=== PATIENT | female | born 1985 | race African-American/Black ===

== ENCOUNTER 2016-11-18 07:47 | Emergency (ER) | payer OTHER ==
[~2016-11-18 07:47] MED LIST: METR500T PO; METR500T4 PO
[2016-11-18 08:31] LABS: BILIRUBIN,URINE NEGATIVE (NEG); GLUCOSE,URINE NEGATIVE (NEG); NITRITE,URINE NEGATIVE (NEG); PH,URINE 6.5; PROTEIN,URINE NEGATIVE (NEG-TRACE); UROBILINOGEN,URINE 0.2 mg/dL (0.2 mg/dL)
[2016-11-18 08:36] LABS: BACTERIA,URINE 0 /HPF (0-FEW); RBC,URINE OCC /HPF (0-2); SQUAMOUS EPITHELIAL CELL,UR MOD /LPF; WBC,URINE OCC /HPF (0-4)
--- NOTE | 2016-11-18 08:59 | PHYS DOC ---
Past Medical History Past Medical History: Other Additional Past Medical Histor: Spontaneous Pneumothorax-no surgery, frequent BV Past Surgical History: Tubal ligation, Other Additional Past Surgical Histo: LEEP,Cyrotherapy Alcohol Use: None Drug Use: None Adult General Chief Complaint Chief Complaint: VAGINAL PROBLEM HPI HPI Patient is a 31 year old female who presents with foul-smelling vaginal discharge for the last couple days. Patient denies any concern for STDs. Denies any urgency frequency dysuria. She states she has history of BV and this feels similar. Denies any abdominal pain nausea or vomiting. Review of Systems Review of Systems Constitutional: Denies fever or chills [] Eyes: Denies change in visual acuity, redness, or eye pain [] HENT: Denies nasal congestion or sore throat [] Respiratory: Denies cough or shortness of breath [] Cardiovascular: No additional information not addressed in HPI [] GI: Denies abdominal pain, nausea, vomiting, bloody stools or diarrhea [] : Vaginal discharge Musculoskeletal: Denies back pain or joint pain [] Integument: Denies rash or skin lesions [] Neurologic: Denies headache, focal weakness or sensory changes [] Endocrine: Denies polyuria or polydipsia [] Allergies Allergies Allergies Coded Allergies Type Severity Reaction Last Updated Verified No Known Drug Allergies 01/02/15 No Physical Exam Physical Exam Constitutional: Well developed, well nourished, no acute distress, non-toxic appearance. [] HENT: Normocephalic, atraumatic, bilateral external ears normal, oropharynx moist, no oral exudates, nose normal. [] Eyes: PERRLA, EOMI, conjunctiva normal, no discharge. [] Neck: Normal range of motion, no tenderness, supple, no stridor. [] Cardiovascular:Heart rate regular rhythm, no murmur [] Lungs & Thorax: Bilateral breath sounds clear to auscultation [] Abdomen: Bowel sounds normal, soft, no tenderness, no masses, no pulsatile masses. [] Vaginal exam External vaginal area appears normal. Cervix is closed no CMT. Trace amount of white discharge noted in the cervical os. No adnexal tenderness. Skin: Warm, dry, no erythema, no rash. [] Back: No tenderness, no CVA tenderness. [] Extremities: No tenderness, no cyanosis, no clubbing, ROM intact, no edema. [] Neurologic: Alert and oriented X 3, normal motor function, normal sensory function, no focal deficits noted. [] Psychologic: Affect normal, judgement normal, mood normal. [] Current Patient Data Vital Signs Vital Signs Date Time Temp Pulse Resp B/P Pulse Ox O2 Delivery O2 Flow Rate FiO2 11/18/16 09:08 98.9 63 18 99 Room Air 98.9 Lab Values Laboratory Tests Test 11/18/16 07:25 11/18/16 08:20 POC Urine HCG, Qualitative Hcg negative (Negative) Urine Collection Type Unknown Urine Color Yellow Urine Clarity Clear Urine pH 6.5 Urine Specific [place] 1.010 Urine Protein Negativemg/dL (NEG-TRACE) Urine Glucose (UA) Negativemg/dL (NEG) Urine Ketones (Stick) Negativemg/dL (NEG) Urine Blood Negative (NEG) Urine Nitrite Negative (NEG) Urine Bilirubin Negative (NEG) Urine Urobilinogen Dipstick 0.2mg/dL (0.2 mg/dL) Urine Leukocyte Esterase Negative (NEG) Urine RBC Occ/HPF (0-2) Urine WBC Occ/HPF (0-4) Urine Squamous Epithelial Cells Mod/LPF Urine Bacteria 0/HPF (0-FEW) Microbiology 11/18/16 Wet Prep - Final, Complete EKG EKG [] Radiology/Procedures Radiology/Procedures [] Course & Med Decision Making Course & Med Decision Making Pertinent Labs and Imaging studies reviewed. (See chart for details) Patient is in the ED with vaginal discharge for couple days. She has history of bacterial vaginosis. Her last treatment for BV she states was around August. Negative urine hCG, urine analysis is negative for infection. Wet prep positive for BV. Patient was discharged with Flagyl. She states she has a new OB she is going to follow-up with. Holly Disclaimer Holly Disclaimer This electronic medical record was generated, in whole or in part, using a voice recognition dictation system. Departure Departure Impression: Primary Impression: Bacterial vaginosis Disposition: 01 HOME, SELF-CARE Condition: STABLE Referrals: DENISE BLACK (PCP) Follow-up with the HOTEL OPERATION MANAGER as soon as possible Patient Instructions: Bacterial Vaginosis, [id number] Additional Instructions: You were seen for bacterial vaginosis. Take the prescribed medicines until completed. Follow-up with your own doctor in one week. Come back to the ED at any point symptoms worsen or you have other concerns. Scripts Metronidazole (Flagyl)500 Mg Tablet1 Tab PO BID #14 TAB Prov:NANCI LEÓN APRN 11/18/16 NANCI LEÓN APRN Nov 18, 2016 08:59
[2016-11-18 09:08] VITALS: BP 132/69
[2016-11-18] MEDS ORDERED: METR500T PO (09:44)
== END 2016-11-18 10:07 | disposition home or self-care (01) ==
LOC: ER 07:47
DX: N76.0 Acute vaginitis (principal); B96.89 Other specified bacterial agents as the cause of diseases classified elsewhere; Z98.51 Tubal ligation status; Z98.890 Other specified postprocedural states
CPT/HCPCS: 81001; 81025; 99284; Q0111

== ENCOUNTER 2017-09-16 19:47 | Emergency (ER) | payer OTHER ==
[2017-09-16 20:59] LABS: BILIRUBIN,URINE NEGATIVE (NEG); CLARITY,URINE CLEAR; COLOR,URINE YELLOW; GLUCOSE,URINE NEGATIVE (NEG); NITRITE,URINE NEGATIVE (NEG); PROTEIN,URINE NEGATIVE (NEG-TRACE); UROBILINOGEN,URINE 0.2 mg/dL (0.2 mg/dL)
[2017-09-16 21:03] LABS: NEG OBC UR NEG; POS OBC UR POS; U PREG PATIENT NEGATIVE (NEG)
[2017-09-16 21:05] LABS: BACTERIA,URINE MANY /HPF (0-FEW); RBC,URINE 0 /HPF (0-2); SQUAMOUS EPITHELIAL CELL,UR MANY /LPF
[2017-09-16] MEDS ORDERED: AZITHROMYCIN 250 MG TABLET. (22:33)
[2017-09-16] MEDS ORDERED: metroNIDAZOLE 500 MG TABLET (22:33)
[2017-09-16] MEDS ORDERED: cefTRIAXone IM 250 MG VIAL IM (22:33)
[2017-09-16] MEDS: cefTRIAXone IM 250 MG VIAL IM (22:40)
[2017-09-16] MEDS: AZITHROMYCIN 250 MG TABLET. PO (22:40)
[2017-09-16] MEDS: metroNIDAZOLE 500 MG TABLET PO (22:40)
[2017-09-18 19:16] LABS: CHLAMYDIA PROBE Negative (Negative); GC PROBE Negative (Negative)
== END 2017-09-16 22:48 | disposition home or self-care (01) ==
LOC: ER 19:47
DX: N76.0 Acute vaginitis (principal); B96.89 Other specified bacterial agents as the cause of diseases classified elsewhere; Z98.51 Tubal ligation status
CPT/HCPCS: 81001; 81025; 87086; 87491; 87591; 96372; 99284-25; J0696; Q0111; Q0144

== ENCOUNTER 2017-12-21 19:32 | Emergency (ER) | payer OTHER ==
[2017-12-21 19:59] LABS: URINE HCG POC HCG NEGATIVE (Negative)
[2017-12-21 20:02] LABS: BILIRUBIN,URINE NEGATIVE (NEG); CLARITY,URINE CLOUDY; COLOR,URINE YELLOW; GLUCOSE,URINE NEGATIVE (NEG); NITRITE,URINE NEGATIVE (NEG); PROTEIN,URINE NEGATIVE (NEG-TRACE); UROBILINOGEN,URINE 0.2 mg/dL (0.2 mg/dL)
[2017-12-21 20:10] LABS: BACTERIA,URINE 0 /HPF (0-FEW); RBC,URINE 0 /HPF (0-2); SQUAMOUS EPITHELIAL CELL,UR MOD /LPF
[2017-12-25 14:23] LABS: CHLAMYDIA PROBE Negative (Negative); GC PROBE Negative (Negative)
== END 2017-12-21 20:20 | disposition home or self-care (01) ==
LOC: ER 19:32
DX: N76.0 Acute vaginitis (principal); B96.89 Other specified bacterial agents as the cause of diseases classified elsewhere; Z11.3 Encounter for screening for infections with a predominantly sexual mode of transmission; Z98.51 Tubal ligation status
CPT/HCPCS: 81001; 81025; 87491; 87591; 99284

== ENCOUNTER 2018-10-27 12:31 | Emergency (ER) | payer OTHER ==
[~2018-10-27] VITALS: Ht 167.6 cm; Wt 77.1 kg
[~2018-10-27 12:31] MED LIST changes: +METR-34 PO; -METR500T4 PO
[2018-10-27 13:02] LABS: BILIRUBIN,URINE NEGATIVE (NEG); CLARITY,URINE CLEAR; COLOR,URINE YELLOW; NITRITE,URINE NEGATIVE (NEG); PROTEIN,URINE NEGATIVE (NEG-TRACE)
--- NOTE | 2018-10-27 13:06 | PHYS DOC ---
Past Medical History Past Medical History: No Pertinent History Additional Past Medical Histor: Spontaneous Pneumothorax-no surgery, frequent BV (ROB CANTRELL APRN) Past Surgical History: Tubal ligation Additional Past Surgical Histo: hemorriodectomy (ROB CANTRELL APRN) Alcohol Use: None Drug Use: None (ROB CANTRELL APRN) Adult General Chief Complaint Chief Complaint: VAGINAL PROBLEM HPI HPI Patient is a 33 year old female who presents with vaginal discharge that is odorous 4 days. (ROB CANTRELL APRN) Review of Systems Review of Systems Constitutional: Denies fever or chills [] Eyes: Denies change in visual acuity, redness, or eye pain [] HENT: Denies nasal congestion or sore throat [] Respiratory: Denies cough or shortness of breath [] Cardiovascular: No additional information not addressed in HPI [] GI: Denies abdominal pain, nausea, vomiting, bloody stools or diarrhea [] : Vaginal discharge. Denies dysuria or hematuria [] Musculoskeletal: Denies back pain or joint pain [] Integument: Denies rash or skin lesions [] Neurologic: Denies headache, focal weakness or sensory changes [] All other systems were reviewed and found to be within normal limits, except as documented in this note. (ROB CANTRELL APRN) Current Medications Current Medications Current Medications Medications (Trade) Dose Ordered Sig/Fina Start Time Stop Time Status Last Admin Dose Admin Azithromycin (Zithromax) 1,000 mg 1X ONCE 10/27/18 13:15 10/27/18 13:16 DC 10/27/18 13:29 1,000 MG Ceftriaxone Sodium (Rocephin Im) 250 mg 1X ONCE 10/27/18 13:15 10/27/18 13:16 DC 10/27/18 13:30 250 MG (MALLORIE CURTIS MD) Allergies Allergies Allergies Coded Allergies Type Severity Reaction Last Updated Verified No Known Drug Allergies 01/02/15 No (MALLORIE CURTIS MD) Physical Exam Physical Exam Constitutional: Well developed, well nourished, no acute distress, non-toxic appearance. [] HENT: Normocephalic, atraumatic, bilateral external ears normal, oropharynx moist, no oral exudates, nose normal. [] Eyes: PERRLA, EOMI, conjunctiva normal, no discharge. [] Neck: Normal range of motion, no tenderness, supple, no stridor. [] Cardiovascular:Heart rate regular rhythm, no murmur [] Lungs & Thorax: Bilateral breath sounds clear to auscultation [] Abdomen: Bowel sounds normal, soft, no tenderness, no masses, no pulsatile masses. White/brown odorous vaginal discharge. [] Skin: Warm, dry, no erythema, no rash. [] Back: No tenderness, no CVA tenderness. [] Extremities: No tenderness, no cyanosis, no clubbing, ROM intact, no edema. [] Neurologic: Alert and oriented X 3, normal motor function, normal sensory function, no focal deficits noted. [] Psychologic: Affect normal, judgement normal, mood normal. [] (ROB CANTRELL APRN) Current Patient Data Vital Signs Vital Signs Date Time Temp Pulse Resp B/P (MAP) Pulse Ox O2 Delivery O2 Flow Rate FiO2 10/27/18 14:01 68 16 120/78 (92) 99 Room Air 10/27/18 12:50 98.6 98.6 (MALLORIE CURTIS MD) Lab Values Laboratory Tests Test 10/27/18 12:40 10/27/18 12:44 Urine Color Yellow Urine Clarity Clear Urine pH 6.0 Urine Specific [place] 1.015 Urine Protein Negative mg/dL (NEG-TRACE) Urine Glucose (UA) Negative mg/dL (NEG) Urine Ketones (Stick) Negative mg/dL (NEG) Urine Blood Negative (NEG) Urine Nitrite Negative (NEG) Urine Bilirubin Negative (NEG) Urine Urobilinogen Dipstick 1.0 mg/dL (0.2 mg/dL) Urine Leukocyte Esterase Moderate (NEG) Urine RBC 0 /HPF (0-2) Urine WBC 5-10 /HPF (0-4) Urine Squamous Epithelial Cells Many /LPF Urine Bacteria Few /HPF (0-FEW) Urine Mucus Mod /LPF POC Urine HCG, Qualitative Hcg negative (Negative) Microbiology 10/27/18 Wet Prep - Final, Complete (MALLOIRE CURTIS MD) EKG EKG [] (ROB CNATRELL APRN) Radiology/Procedures Radiology/Procedures [] (ROB CANTRELL APRN) Course & Med Decision Making Course & Med Decision Making Patient is a 33 year old female who presents with vaginal discharge that is odorous 4 days. Denies dysuria, nausea, vomiting, diarrhea, fever, abdominal pain. Abdomen is soft and nontender. Vital signs within normal limits. Afebrile. Lungs are clear to auscultation all lobes. Heart rate regular without murmur. Pelvic exam done there is no tenderness and pain with pelvic exam. Cervical bleeding seen on exam but no cervical motion pain. See pelvic exam charted below. Patient be treated for Chlamydia and gonorrhea. Cultures were taken and patient told that she'll be called in 48 hours if results are positive. Urinalysis negative for urinary tract infection. Wet mount shows bacterial vaginosis. Patient will also be treated for bacterial vaginosis. Patient follow- up with her cryptologic technician technical for continuation of care. Pelvic Exam: Claims Administrator present Abdomen: Nontender External Genitalia: Normal Skin Speculum: Cervix bleeding. Normal vaginal mucosa, White/ brown cervical discharge Bimanual: No adnexal masses or tenderness, No CMT (ROB CANTRELL APRN) Course & Med Decision Making Staff Physician Addendum: I was working in the ER during the course of this patient's visit. I was available for consultation as needed, but I was not directly involved in the care of this patient. (MALLORIE CURTIS MD) Dragon Disclaimer Dragon Disclaimer This electronic medical record was generated, in whole or in part, using a voice recognition dictation system. (ROB CANTRELL APRN) Departure Departure Impression: Primary Impression: Bacterial vaginosis Additional Impression: Screen for STD (sexually transmitted disease) Disposition: 01 HOME, SELF-CARE Condition: STABLE Referrals: DENISE BLACK (PCP) Patient Instructions: Bacterial Vaginosis, Sexually Transmitted Disease Additional Instructions: Follow up with her cryptologic technician technical. Take medications as prescribed. You will be called in 48 hours if urine chlamydia or gonorrhea comes back positive. Scripts Metronidazole (METRONIDAZOLE) 500 Mg Tablet 1 TAB PO BID for 7 Days, #14 TAB Prov: ROB CANTRELL APRN 10/27/18 Problem Qualifiers ROB CANTRELL APRN Oct 27, 2018 13:06 MALLORIE CURTIS MD Oct 28, 2018 21:26
[2018-10-27] MEDS ORDERED: AZITHROMYCIN 250 MG TABLET. PO ONE (13:15)
[2018-10-27] MEDS ORDERED: cefTRIAXone IM 250 MG VIAL IM ONE (13:15)
[2018-10-27 13:24] LABS: BACTERIA,URINE FEW /HPF (0-FEW); RBC,URINE 0 /HPF (0-2); SQUAMOUS EPITHELIAL CELL,UR MANY /LPF
[2018-10-27] MEDS ORDERED: METR-34 PO (13:30)
[2018-10-27 14:01] VITALS: BP 120/78
[2018-10-29 14:16] LABS: GC PROBE Negative (Negative)
== END 2018-10-27 14:01 | disposition home or self-care (01) ==
LOC: ER 12:31
DX: N76.0 Acute vaginitis (principal); B96.89 Other specified bacterial agents as the cause of diseases classified elsewhere; A64 Unspecified sexually transmitted disease
CPT/HCPCS: 81001; 81025; 87086; 87491; 87591; 96372; 99283; J0696; Q0111; Q0144

== ENCOUNTER 2019-01-24 12:57 | Emergency (ER) | payer OTHER ==
[~2019-01-24] VITALS: Ht 165.1 cm; Wt 77.1 kg
[2019-01-24 14:00] VITALS: BP 137/87
[2019-01-24 14:03] LABS: BILIRUBIN,URINE NEGATIVE (NEG); CLARITY,URINE CLEAR; COLOR,URINE YELLOW; NITRITE,URINE NEGATIVE (NEG); PROTEIN,URINE NEGATIVE (NEG-TRACE); UROBILINOGEN,URINE 0.2 mg/dL (0.2 mg/dL)
[2019-01-24 14:31] LABS: BACTERIA,URINE 0 /HPF (0-FEW); SQUAMOUS EPITHELIAL CELL,UR MOD /LPF; WBC,URINE 0 /HPF (0-4)
--- NOTE | 2019-01-24 14:36 | PHYS DOC ---
Past Medical History Past Medical History: Other Additional Past Medical Histor: Spontaneous Pneumothorax-no surgery, frequent BV Past Surgical History: Tubal ligation, Other Additional Past Surgical Histo: hemorriodectomy Alcohol Use: None Drug Use: None Adult General Chief Complaint Chief Complaint: VAGINAL PROBLEM HPI HPI 33-year-old female presents to ER via POV for complaints of 2 week history of vaginal discharge and odor. She reports LMP ended 2 days ago- denies abnorm. vaginal bleeding. She denies urinary symptoms, fever, or nausea and vomiting. Patient has history of recurring bacterial vaginosis denying any new sexual partners. Denies concerns for other STDs. Review of Systems Review of Systems Constitutional: Denies fever or chills [] Eyes: Denies change in visual acuity, redness, or eye pain [] HENT: Denies nasal congestion or sore throat [] Respiratory: Denies cough or shortness of breath [] Cardiovascular: No additional information not addressed in HPI [] GI: Denies nausea, vomiting, bloody stools or diarrhea. Reports mid low abd pain : Denies dysuria or hematuria. Reports vaginal discharge/odor- denies abnorm. vag bleeding Musculoskeletal: Denies back pain or joint pain [] Integument: Denies rash or skin lesions [] Neurologic: Denies headache, focal weakness or sensory changes [] All other systems were reviewed and found to be within normal limits, except as documented in this note. Current Medications Current Medications Current Medications Medications (Trade) Dose Ordered Sig/Fina Start Time Stop Time Status Last Admin Dose Admin Azithromycin (Zithromax) 1,000 mg 1X ONCE 01/24/19 15:30 01/24/19 15:31 DC 01/24/19 15:24 1,000 MG Ceftriaxone Sodium (Rocephin Im) 250 mg 1X ONCE 01/24/19 15:30 01/24/19 15:31 DC 01/24/19 15:23 250 MG Allergies Allergies Allergies Coded Allergies Type Severity Reaction Last Updated Verified No Known Drug Allergies 01/02/15 No Physical Exam Physical Exam Constitutional: Well developed, well nourished, no acute distress, non-toxic appearance. [] HENT: Normocephalic, atraumatic, oropharynx moist, nose normal. [] Eyes: Pupils equal, conjunctiva normal, no discharge. [] Neck: Normal range of motion, supple Cardiovascular:Heart rate regular rhythm, no murmur [] Lungs & Thorax: Bilateral breath sounds clear to auscultation- resp. equal/nonlabored Abdomen: Bowel sounds normal, soft, tender suprapubic area- no distention/ rigidity, no masses, no pulsatile masses. [] Skin: Warm, dry, no erythema, no rash. [] Back: No tenderness, no CVA tenderness. [] Extremities: No tenderness, no cyanosis, no clubbing, ROM intact, no edema. [] Neurologic: Alert and oriented X 3, normal motor function, normal sensory function, no focal deficits noted. [] Psychologic: Affect normal, judgement normal, mood normal. [] Pelvic Exam: RN Horticultural Services Supervisor present 1425 Abdomen: Nontender External Genitalia: Normal Skin-no lesions or rash Speculum: Normal vaginal mucosa, yellowish vaginal discharge- cervical os closed. With opening of speculum had small amt of bleeding from cervix- no clots/tissue Bimanual: No adnexal masses or tenderness, No CMT Current Patient Data Vital Signs Vital Signs Date Time Temp Pulse Resp B/P (MAP) Pulse Ox O2 Delivery O2 Flow Rate FiO2 01/24/19 14:00 99.0 79 18 137/87 (104) 99 Room Air 99.0 Lab Values Laboratory Tests Test 01/24/19 13:46 01/24/19 13:55 Urine Collection Type Unknown Urine Color Yellow Urine Clarity Clear Urine pH 8.0 Urine Specific [place] 1.015 Urine Protein Negative mg/dL (NEG-TRACE) Urine Glucose (UA) Negative mg/dL (NEG) Urine Ketones (Stick) Negative mg/dL (NEG) Urine Blood Negative (NEG) Urine Nitrite Negative (NEG) Urine Bilirubin Negative (NEG) Urine Urobilinogen Dipstick 0.2 mg/dL (0.2 mg/dL) Urine Leukocyte Esterase Negative (NEG) Urine RBC 1-2 /HPF (0-2) Urine WBC 0 /HPF (0-4) Urine Squamous Epithelial Cells Mod /LPF Urine Bacteria 0 /HPF (0-FEW) POC Urine HCG, Qualitative Hcg negative (Negative) Microbiology 01/24/19 Wet Prep - Final, Complete EKG EKG [] Radiology/Procedures Radiology/Procedures [] Course & Med Decision Making Course & Med Decision Making Pertinent Labs reviewed. (See chart for details) Pt evaluated in the ER for complaints of vaginal discharge. Wet mount suggestive of BV and patient has had this in the past. Patient aware GC and chlamydia results pending and she is requesting prophylactic treatment although initially denying any concerns for STD. Rocephin and azithromycin will be provided while in the ER and patient will be provided with prescription for Flagyl. UA negative for infection and UCG was negative.Education provided on signs and symptoms to return to ER. Discharge instructions were discussed. Patient to follow-up with primary care physician if symptoms persist or with any concerns. Advised patient on need for follow-up with [facility] as well for reevaluation and retest to ensure infection completely treated. Dragon Disclaimer Dragon Disclaimer This electronic medical record was generated, in whole or in part, using a voice recognition dictation system. Departure Departure Impression: Primary Impression: Bacterial vaginosis Disposition: HOME, SELF-CARE Condition: STABLE Referrals: DENISE BLACK (PCP) MARÍA JACKSON MD Patient Instructions: Bacterial Vaginosis, Safe Sex, Sexually Transmitted Disease, [id number] Additional Instructions: Follow-up on your test results in 2-3 days with medical records. Follow-up with a digital solution architect for reevaluation and further care if symptoms persist and for retesting to ensure your infection is completely treated. Scripts Metronidazole (FLAGYL) 500 Mg Tablet 1 TAB PO BID, #14 TAB 0 Refills Prov: CRIS DAVISON APRN 01/24/19 CRIS DAVISON APRN January 24, 2019 14:36
[2019-01-24] MEDS ORDERED: METR500T PO (15:14)
[2019-01-24] MEDS: cefTRIAXone IM 250 MG VIAL IM ONE (15:23)
[2019-01-24] MEDS: AZITHROMYCIN 250 MG TABLET. PO ONE (15:24)
[2019-01-25 14:12] LABS: GC PROBE Negative (Negative)
== END 2019-01-24 15:36 | disposition home or self-care (01) ==
LOC: ER 12:57
DX: N76.0 Acute vaginitis (principal); B96.89 Other specified bacterial agents as the cause of diseases classified elsewhere; Z98.51 Tubal ligation status
CPT/HCPCS: 81001; 81025; 87491; 87591; 96372; 99284; J0696; Q0111; Q0144

== ENCOUNTER 2019-11-22 12:32 | Emergency (ER) | payer OTHER ==
[~2019-11-22] VITALS: Ht 167.6 cm; Wt 77.2 kg
[2019-11-22 12:43] VITALS: BP 137/89
--- NOTE | 2019-11-22 13:00 | PHYS DOC ---
Past Medical History Past Medical History: Other Additional Past Medical Histor: Spontaneous Pneumothorax-no surgery, frequent BV (KALEN SANDHU APRN) Past Surgical History: Tubal ligation, Other Additional Past Surgical Histo: hemorriodectomy (KALEN SANDHU APRN) Smoking Status: Never Smoker Alcohol Use: None Drug Use: None (KALEN SANDHU APRN) Adult General Chief Complaint Chief Complaint: VAGINAL PROBLEM [facility] Patient is a 34 year old female who presents with vaginal discharge that is yellow in color that is been ongoing for a week. Patient denies any other symptoms. Complete ROS were reviewed and found to be within normal limits, except as documented in the HPI (KALEN SANDHU APRN) Allergies Allergies Allergies Coded Allergies Type Severity Reaction Last Updated Verified No Known Drug Allergies 01/02/15 No (MALLORIE CURTIS MD) Physical Exam Physical Exam Constitutional: Well developed, well nourished, no acute distress, non-toxic appearance. [] Skin: Warm, dry, no erythema, no rash. [] Pelvic Exam: External exam is normal and without rash, No CMT, OS is closed, whitish- yellow discharge, uterus NTTP, No adnexal masses or tenderness noted Psychologic: Affect normal, judgement normal, mood normal. [] (KALEN SANDHU APRN) Current Patient Data Vital Signs Vital Signs Date Time Temp Pulse Resp B/P (MAP) Pulse Ox O2 Delivery O2 Flow Rate FiO2 11/22/19 12:43 99.0 105 17 137/89 (105) 100 Room Air 99.0 (MALLORIE CURTIS MD) Lab Values Laboratory Tests Test 11/22/19 12:33 Urine Collection Type Unknown Urine Color Yellow Urine Clarity Clear Urine pH 5.5 (<5.0-8.0) Urine Specific [place] 1.015 (1.000-1.030) Urine Protein Negative mg/dL (NEG-TRACE) Urine Glucose (UA) Negative mg/dL (NEG) Urine Ketones (Stick) Negative mg/dL (NEG) Urine Blood Negative (NEG) Urine Nitrite Negative (NEG) Urine Bilirubin Negative (NEG) Urine Urobilinogen Dipstick 0.2 mg/dL (0.2 mg/dL) Urine Leukocyte Esterase Small (NEG) Urine RBC 3-5 /HPF (0-2) Urine WBC 1-4 /HPF (0-4) Urine Squamous Epithelial Cells Many /LPF Urine Transitional Epithelial Cells Occ /LPF Urine Bacteria Moderate /HPF (0-FEW) Urine Hyaline Casts Few /HPF Urine Mucus Marked /LPF Microbiology 11/22/19 Wet Prep - Final, Complete (MALLORIE CURTIS MD) Lab Values Laboratory Tests Test 11/22/19 12:33 Urine Collection Type Unknown Urine Color Yellow Urine Clarity Clear Urine pH 5.5 (<5.0-8.0) Urine Specific [place] 1.015 (1.000-1.030) Urine Protein Negative mg/dL (NEG-TRACE) Urine Glucose (UA) Negative mg/dL (NEG) Urine Ketones (Stick) Negative mg/dL (NEG) Urine Blood Negative (NEG) Urine Nitrite Negative (NEG) Urine Bilirubin Negative (NEG) Urine Urobilinogen Dipstick 0.2 mg/dL (0.2 mg/dL) Urine Leukocyte Esterase Small (NEG) Urine RBC 3-5 /HPF (0-2) Urine WBC 1-4 /HPF (0-4) Urine Squamous Epithelial Cells Many /LPF Urine Transitional Epithelial Cells Occ /LPF Urine Bacteria Moderate /HPF (0-FEW) Urine Hyaline Casts Few /HPF Urine Mucus Marked /LPF Microbiology 11/22/19 Wet Prep - Final, Complete (KALEN SANDHU APRN) EKG EKG [] (KALEN SANDHU APRN) Radiology/Procedures Radiology/Procedures [] (KALEN SANDHU APRN) Course & Med Decision Making Course & Med Decision Making Pertinent Labs and Imaging studies reviewed. (See chart for details) We will get gonorrhoeae and chlamydia swabs on patient as well as a wet prep. Discussed treatment with the patient patient states she does not will be treated last swabs come back positive. Will wait for wet prep results and then discharge home and if her gonorrhea or chlamydia swabs are positive will have patient come back for treatment. Urine has bacteria in it, and wet prep shows bacterial vaginosis and has clue cells present. Will put on Flagyl 500 mg twice a day for 7 days. (KALEN SANDHU APRN) Course & Med Decision Making Staff Physician Addendum: I was working in the ER during the course of this patient's visit. I was available for consultation as needed, but I was not directly involved in the care of this patient. (MALLORIE CURTIS MD) Dragon Disclaimer Dragon Disclaimer This electronic medical record was generated, in whole or in part, using a voice recognition dictation system. (KALEN SANDHU APRN) Departure Departure Impression: Primary Impression: Bacterial vaginosis Additional Impressions: UTI (lower urinary tract infection) Screen for STD (sexually transmitted disease) Disposition: HOME, SELF-CARE Condition: STABLE Referrals: DENISE BLACK (PCP) Patient Instructions: Bacterial Vaginosis Additional Instructions: Thank you for visiting [facility]. We appreciate you trusting us with your care. If any additional problems come up don't hesitate to return to visit us. Please follow up with your primary care provider so they can plan additional care if needed and know about the problem that you had. If symptoms worsen come back to the Emergency Department. Any concerning symptoms that start such as chest pain, shortness of air, weakness or numbness on one side of the body, running high fevers or any other concerning symptoms return to the ER. You have been tested for sexually transmitted diseases in the ER today. Some of your results will not come back for 48-72 hours. If positive, you will get a call letting you know. If you are positive for gonorrhea or chlamydia you have been treated. If they are positive please notify your partner. Please avoid sexual intercourse for 2 weeks to avoid passing the infection back and forth. You have been prescribed an antibiotic today to help fight your infection. P lease take all of the antibiotic as directed. If after 48 hours the infection is not improving, please return for more care. If the infection worsens, return to ER for additional care. Scripts Cephalexin (KEFLEX) 500 Mg Capsule 1 CAP PO BID for 7 Days, #14 CAP 0 Refills Prov: KALEN SANDHU APRN 11/22/19 Metronidazole (FLAGYL) 500 Mg Tablet 1 TAB PO BID for 7 Days, #14 TAB Prov: KALEN SANDHU APRN 11/22/19 Problem Qualifiers KALEN SANDHU APRN Nov 22, 2019 13:00 MALLORIE CURTIS MD Nov 22, 2019 16:50
[2019-11-22 13:09] LABS: BILIRUBIN,URINE NEGATIVE (NEG); CLARITY,URINE CLEAR; COLOR,URINE YELLOW; NITRITE,URINE NEGATIVE (NEG); PH,URINE 5.5 (<5.0-8.0); PROTEIN,URINE NEGATIVE (NEG-TRACE); UROBILINOGEN,URINE 0.2 mg/dL (0.2 mg/dL)
[2019-11-22 13:24] LABS: HYALINE CASTS, URINE FEW /HPF; SQUAMOUS EPITHELIAL CELL,UR MANY /LPF
[2019-11-22 13:25] LABS: BACTERIA,URINE MODERATE /HPF (0-FEW)
[2019-11-22] MEDS ORDERED: METR500T PO (13:58)
[2019-11-22] MEDS ORDERED: CEPH-264 PO (13:58)
[2019-11-26 22:08] LABS: GC PROBE Negative (Negative)
== END 2019-11-22 14:40 | disposition home or self-care (01) ==
LOC: ER 12:32
DX: N76.0 Acute vaginitis (principal); B96.89 Other specified bacterial agents as the cause of diseases classified elsewhere; N39.0 Urinary tract infection, site not specified; Z20.2 Contact with and (suspected) exposure to infections with a predominantly sexual mode of transmission; Z98.51 Tubal ligation status
CPT/HCPCS: 81001; 87086; 87491; 87591; 99284; Q0111

== ENCOUNTER 2020-05-12 09:05 | Emergency (ER) | payer OTHER ==
[~2020-05-12] VITALS: Ht 166.4 cm; Wt 83.2 kg
[~2020-05-12 09:05] MED LIST changes: +CEPH-264 PO
[2020-05-12 09:30] VITALS: BP 121/75
[2020-05-12] MEDS ORDERED: METR500T PO (10:02)
--- NOTE | 2020-05-12 10:02 | PHYS DOC ---
Past Medical History Past Medical History: Other Additional Past Medical Histor: Spontaneous Pneumothorax-no surgery, frequent BV Past Surgical History: Tubal ligation, Other Additional Past Surgical Histo: hemorriodectomy Smoking Status: Never Smoker Alcohol Use: None Drug Use: None General Adult EDM: Chief Complaint: VAGINAL PROBLEM HPI: HPI: Patient is a 34 year old female who presented to ER today for evaluation OF vaginal discharge. Patient denies any pelvic pain, no fever, no abdominal pain. Patient denies being sexually active at this time. Patient says she was diagnosed with bacterial vaginosis 3 weeks ago, she was given prescription for Flagyl however she lost the medication. Patient came back here today would like for another prescription for Flagyl. Review of Systems: Review of Systems: Constitutional: Denies fever or chills. [] Eyes: Denies change in visual acuity. [] HENT: Denies nasal congestion or sore throat. [] Respiratory: Denies cough or shortness of breath. [] Cardiovascular: Denies chest pain or edema. [] GI: Denies abdominal pain, nausea, vomiting, bloody stools or diarrhea. [] : Positive for vaginal discharge. Musculoskeletal: Denies back pain or joint pain. [] Integument: Denies rash. [] Neurologic: Denies headache, focal weakness or sensory changes. [] Endocrine: Denies polyuria or polydipsia. [] Lymphatic: Denies swollen glands. [] Psychiatric: Denies depression or anxiety. [] Heart Score: Risk Factors: Risk Factors: DM, Current or recent (<one month) smoker, HTN, HLP, family history of CAD, obesity. Risk Scores: Score 0 - 3: 2.5% MACE over next 6 weeks - Discharge Home Score 4 - 6: 20.3% MACE over next 6 weeks - Admit for Clinical Observation Score 7 - 10: 72.7% MACE over next 6 weeks - Early Invasive Strategies Allergies: Allergies: Allergies Coded Allergies Type Severity Reaction Last Updated Verified No Known Drug Allergies 01/02/15 No Physical Exam: PE: Constitutional: Well developed, well nourished, no acute distress, non-toxic appearance. [] HENT: Normocephalic, atraumatic, bilateral external ears normal, oropharynx moist, no oral exudates, nose normal. [] Eyes: PERRLA, EOMI, conjunctiva normal, no discharge. [] Neck: Normal range of motion, no tenderness, supple, no stridor. [] Cardiovascular:Heart rate regular rhythm, no murmur [] Lungs & Thorax: Bilateral breath sounds clear to auscultation [] Abdomen: Bowel sounds normal, soft, no tenderness, no masses, no pulsatile masses. [] Skin: Warm, dry, no erythema, no rash. [] Back: No tenderness, no CVA tenderness. [] Extremities: No tenderness, no cyanosis, no clubbing, ROM intact, no edema. [] Neurologic: Alert and oriented X 3, normal motor function, normal sensory function, no focal deficits noted. [] Psychologic: Affect normal, judgement normal, mood normal. [] Current Patient Data: Labs: Laboratory Tests Test 05/12/20 09:36 POC Urine HCG, Qualitative Hcg negative (Negative) EKG: EKG: [] Radiology/Procedures: Radiology/Procedures: [] Course & Med Decision Making: Course & Med Decision Making Pertinent Labs and Imaging studies reviewed. (See chart for details) [] Dragon Disclaimer: DragTranslimit Disclaimer: This electronic medical record was generated, in whole or in part, using a voice recognition dictation system. Departure Departure Impression: Primary Impression: Vaginal discharge Disposition: HOME, SELF-CARE Condition: STABLE Referrals: UNKNOWN PCP NAME (PCP) please follow up with your family doctor as needed Patient Instructions: Bacterial Vaginosis Additional Instructions: Thank you for visiting our Emergency Department. We appreciate you trusting us with your care. If any additional problems come up don't hesitate to return to visit us. Please follow up with your primary care provider so they can plan ad ditional care if needed and know about the problem that you had. If symptoms worsen come back to the Emergency Department. Any concerning symptoms that start such as chest pain, shortness of air, weakness or numbness on one side of the body, running high fevers or any other concerning symptoms return to the ER. Scripts Metronidazole (FLAGYL) 500 Mg Tablet 1 TAB PO BID for 7 Days, #14 TAB Prov: KATI BUTLER DO 05/12/20 Justicifation of Admission Dx: Justifications for Admission: Justification of Admission Dx: N/A KATI BUTLER DO May 12, 2020 10:02
== END 2020-05-12 10:30 | disposition home or self-care (01) ==
LOC: ER 09:05
DX: N89.8 Other specified noninflammatory disorders of vagina (principal); Z98.51 Tubal ligation status; Z98.890 Other specified postprocedural states
CPT/HCPCS: 81025; 99283

== ENCOUNTER 2022-02-01 13:55 | Emergency (ER) | payer OTHER ==
[~2022-02-01] VITALS: Ht 165.1 cm; Wt 78.5 kg
[2022-02-01 14:32] VITALS: BP 130/86
[2022-02-01] MEDS ORDERED: DOXYCYCLINE HYCLATE 100 MG TABLET PO ONE (15:00)
[2022-02-01] MEDS ORDERED: metroNIDAZOLE 500 MG TABLET PO ONE (15:00)
[2022-02-01] MEDS ORDERED: cefTRIAXone IM 500 MG VIAL. IM ONE (15:00)
[2022-02-01 15:29] LABS: BACTERIA,URINE MODERATE /HPF (0-FEW); RBC,URINE 0 /HPF (0-2)
--- NOTE | 2022-02-01 15:35 | PHYS DOC ---
Past Medical History Past Medical History: Sciatica, Other Additional Past Medical Histor: Spontaneous Pneumothorax-no surgery, frequent BV Past Surgical History: Tubal ligation, Other Additional Past Surgical Histo: hemorriodectomy Smoking Status: Never Smoker Alcohol Use: None Drug Use: None General Adult EDM: Chief Complaint: VAGINAL PROBLEM HPI: HPI: Patient is a 36 year old female presenting to the ED today with complaints of 7 out of 10 left-sided sciatica pain, symptoms of been going on for 1 week. Patient denies any trauma. Denies any loss of bowel/bladder function. She states this pain is consistent with her sciatica, she states she has an appointment with her PCP on February 21, 2022. Denies any trauma. Patient is also complaining of foul smelling vaginal discharge for 3 to 4 days. 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 She states she knows she has bacterial vaginosis but requested the truckdriver to be treated for STDs. Review of Systems: Review of Systems: Constitutional: Denies fever or chills. [] GI: Denies abdominal pain, nausea, vomiting, bloody stools or diarrhea. [] : Reports foul-smelling vaginal discharge denies dysuria. [] Musculoskeletal: Reports left sciatica pain Integument: Denies rash. [] Psychiatric: Denies depression or anxiety. [] Heart Score: C/O Chest Pain: N/A Risk Factors: Risk Factors: DM, Current or recent (<one month) smoker, HTN, HLP, family history of CAD, obesity. Risk Scores: Score 0 - 3: 2.5% MACE over next 6 weeks - Discharge Home Score 4 - 6: 20.3% MACE over next 6 weeks - Admit for Clinical Observation Score 7 - 10: 72.7% MACE over next 6 weeks - Early Invasive Strategies Current Medications: Current Medications Medications (Trade) Dose Ordered Sig/Fina Start Time Stop Time Status Last Admin Dose Admin Ceftriaxone Sodium (Rocephin Im) 500 mg 1X ONCE 02/01/22 15:00 02/01/22 15:01 DC Doxycycline Hyclate (Vibra-Tab) 100 mg 1X ONCE 02/01/22 15:00 02/01/22 15:01 DC Metronidazole (Flagyl) 2,000 mg 1X ONCE 02/01/22 15:00 02/01/22 15:01 DC Allergies: Allergies: Allergies Coded Allergies Type Severity Reaction Last Updated Verified No Known Drug Allergies 01/02/15 No Physical Exam: PE: Constitutional: Well developed, well nourished, no acute distress, non-toxic appearance. [] Abdomen: Bowel sounds normal, soft, no tenderness, no masses, no pulsatile masses. [] pelvic exam-patient self swabbed Skin: patches of black skin darker than her colored skin Back: No tenderness, no CVA tenderness. [] Extremities: No tenderness, no cyanosis, no clubbing, ROM intact, no edema. [] Neurologic: Alert and oriented X 3, normal motor function, normal sensory function, no focal deficits noted. [] Psychologic: Affect normal, judgement normal, mood normal. [] Current Patient Data: Labs: Laboratory Tests Test 02/01/22 15:07 02/01/22 15:19 Urine Collection Type Void Urine Color (Auto) Light yellow Urine Turbidity Clear Urine pH (Auto) 6.5 (<5.0-8.0) Urine Specific [place] 1.016 (1.000-1.030) Urine Protein (Auto) Negative mg/dL (Negative) Urine Glucose (Auto)(UA) Negative mg/dL (Negative) Urine Ketones (Auto) Negative mg/dL (Negative) Urine Blood (Auto) Negative (Negative) Urine Nitrite Negative (Negative) Urine Bilirubin (Auto) Negative (Negative) Urine Urobilinogen (Auto) Normal mg/dL (Normal) Urine Leukocyte Esterase (Auto) Moderate (Negative) Urine RBC 0 /HPF (0-2) Urine WBC 5-10 /HPF (0-4) Urine Squamous Epithelial Cells Mod /LPF Urine Bacteria Moderate /HPF (0-FEW) Urine Mucus Slight /LPF POC Urine HCG, Qualitative Hcg negative (Negative) Microbiology 02/01/22 Wet Prep - Final, Complete Vital Signs: Vital Signs Date Time Temp Pulse Resp B/P (MAP) Pulse Ox O2 Delivery O2 Flow Rate FiO2 02/01/22 14:32 97.8 81 18 130/86 (101) 99 Room Air 97.8 EKG: EKG: [] Radiology/Procedures: Radiology/Procedures: [] Course & Med Decision Making: Course & Med Decision Making Pertinent Labs and Imaging studies reviewed. (See chart for details) This is a 36-year-old female patient presenting to the ED today with complaints of sciatica and vaginal discharge. She is stating she is in a new relationship and the significant other is being treated for STDs. I recommended she gets treated for STDs well. She is also positive for bacterial vaginosis. She refused Rocephin IM in the ED and discharged with doxycycline and Flagyl. Holly Disclaimer: Holly Disclaimer: This electronic medical record was generated, in whole or in part, using a voice recognition dictation system. Departure Departure Impression: Primary Impression: Bacterial vaginosis Additional Impression: Sciatica of left side Disposition: HOME / SELF CARE / HOMELESS Condition: IMPROVED Referrals: UNKNOWN PCP NAME (PCP) follow up in the next week Patient Instructions: Bacterial Vaginosis, [id number], Sciatica, [id number] Additional Instructions: Take the prescribed medications as ordered. You are positive for bacterial vaginosis, ensure you complete your antibiotics. Please follow-up with your primary care doctor as soon as you can Scripts Hydrocodone Bit/Acetaminophen (HYDROCODONE-APAP 5-325 ) 1 Tab Tablet 1 TAB PO PRN Q6HRS PRN for PAIN, #8 TAB 0 Refills Prov: NANCI LEÓN WORKSHOP MANAGER 02/01/22 Metronidazole (METRONIDAZOLE) 500 Mg Tablet 1 TAB PO BID, #10 TAB 0 Refills Prov: NANCI LEÓN WORKSHOP MANAGER 02/01/22 Doxycycline Hyclate (DOXYCYCLINE HYCLATE) 100 Mg Tablet 1 TAB PO BID, #14 TAB Prov: NANCI LEÓN WORKSHOP MANAGER 02/01/22 Naproxen (NAPROXEN) 500 Mg Tablet 1 TAB PO BID for pain, #14 TAB 0 Refills Prov: NANCI LEÓN APRN 02/01/22 NANCI LEÓN WORKSHOP MANAGER February 01, 2022 15:35
[2022-02-01] MEDS ORDERED: METR-34 PO (15:57)
[2022-02-01] MEDS ORDERED: NAPR-514 PO (15:57)
[2022-02-01] MEDS ORDERED: DOXY100T PO (15:57)
[2022-02-01] MEDS ORDERED: HYDR-2761 PO (15:57)
[2022-02-02 21:08] LABS: GC PROBE Negative (Negative)
== END 2022-02-01 16:07 | disposition home or self-care (01) ==
LOC: ER 13:55
DX: N76.0 Acute vaginitis (principal); B96.89 Other specified bacterial agents as the cause of diseases classified elsewhere; M54.32 Sciatica, left side; Z98.51 Tubal ligation status
CPT/HCPCS: 81001; 81025; 87086; 87491; 87591; 99283; Q0111